=== PATIENT | female | born 1985 | race Caucasian/White ===

== ENCOUNTER 2017-09-20 19:33 | Emergency (ER) | payer OTHER ==
[2017-09-20 19:38] VITALS: RESP 18; TEMP 98.2
--- NOTE | 2017-09-20 21:35 | ED ---
Overdose HPI - General Chief Complaint: Overdose Stated Complaint: overdose Time Seen by Provider: 09/20/17 19:37 Source: police, EMS Mode of arrival: EMS Limitations: no limitations - History of Present Illness Initial Comments: This patient is a 32-year-old woman brought for evaluation after she had an accidental heroin overdose this evening. The patient reports that she had been a previous user of heroin but has been clean for a long time now. She states that she has been in a situation where she is taking care of the child throughout the night and then after this was done she felt she needed something to help her get to sleep. She took heroin, but believes she had taken too much , as she was base this on amount she used to use but again she has been clean for a long time. An associate of hers called the ambulance and she was given Narcan and she did become alert. The patient denies any pain or other symptoms currently. She deftly denies any suicidal ideation or intent. Complaint: accidental overdose -: minutes(s) Intent: want to go to sleep How Overdose Was Discovered: family/friend present at time Context: Accidental Overdose: other Treatments Prior to Arrival: narcan - Related Data Previous Rx's Medication Instructions Recorded Ibuprofen [Motrin] 800 mg PO Q8HR PRN #20 tab 06/20/15 Allergies Allergy/AdvReac Type Severity Reaction Status Date / Time zolpidem tartrate AdvReac Hallucinati Verified 09/20/17 20:09 [From Bhaskar] ons Review of Systems ROS Statement: Those systems with pertinent positive or pertinent negative responses have been documented in the HPI. ROS Other: All systems not noted in ROS Statement are negative. Constitutional: Denies: fever Respiratory: Denies: cough, dyspnea Cardiovascular: Denies: chest pain, palpitations Gastrointestinal: Denies: abdominal pain, vomiting, diarrhea Genitourinary: Denies: dysuria, hematuria, abnormal menses Musculoskeletal: Denies: back pain Skin: Denies: rash Neurological: Denies: headache, weakness, numbness Psychiatric: Denies: depression, suicidal thoughts Past Medical History Past Medical History: No Reported History Additional Past Medical History / Comment(s): DEPRESSION, ANXIETY, BIPOLAR, Heroin use History of Any Multi-Drug Resistant Organisms: MRSA Date of last positivie culture/infection: 06/06/2014 MDRO Source:: Right Axilla Past Surgical History: No Surgical Hx Reported Past Psychological History: Anxiety, Bipolar, Depression Smoking Status: Current every day smoker Past Alcohol Use History: Occasional Past Drug Use History: Heroin, Marijuana General Exam Limitations: no limitations General appearance: alert, in no apparent distress Head exam: Present: atraumatic, normocephalic Eye exam: Present: normal appearance. Absent: scleral icterus, conjunctival injection Neck exam: Present: other (There is an IV line in the left external jugular vein.) Respiratory exam: Present: normal lung sounds bilaterally. Absent: respiratory distress, wheezes, rales, rhonchi, stridor Cardiovascular Exam: Present: regular rate, normal rhythm, normal heart sounds. Absent: systolic murmur, diastolic murmur, rubs, gallop GI/Abdominal exam: Present: soft. Absent: tenderness, guarding, rebound Back exam: Present: normal inspection. Absent: CVA tenderness (R), CVA tenderness (L) Neurological exam: Present: alert, oriented X3, CN II-XII intact. Absent: motor sensory deficit Skin exam: Present: warm, dry, intact, normal color. Absent: rash Course Vital Signs 09/20/17 09/20/17 09/20/17 19:34 20:33 21:55 Temperature 98.2 F Pulse Rate 102 H 93 88 Respiratory 18 18 18 Rate Blood Pressure 127/73 122/71 105/62 O2 Sat by Pulse 97 97 98 Oximetry 09/20/17 23:04 Temperature Pulse Rate 91 Respiratory 18 Rate Blood Pressure 111/74 O2 Sat by Pulse 98 Oximetry Medical Decision Making - EKG Data -: EKG Interpreted by [place] EKG shows normal: sinus rhythm, axis (Normal), intervals (Normal), QRS complexes (Normal), ST-T waves (Normal) Rate: tachycardia (Rate approximately 102 BPM) Interpretation: normal EKG Disposition Clinical Impression: Poisoning by opiate or related narcotic Disposition: HOME SELF-CARE Condition: Good Instructions: Opioid Overdose (ED) Referrals: None,Stated [Primary Care Provider] - 1-2 days
[2017-09-20 23:04] VITALS: BP 111/74; PULSE 91
== END 2017-09-21 | disposition home or self-care (01) ==
LOC: EC 19:33
DX: T40.1X1A Poisoning by heroin, accidental (unintentional), initial encounter (principal); F17.200 Nicotine dependence, unspecified, uncomplicated; Z86.14 Personal history of Methicillin resistant Staphylococcus aureus infection; Z88.8 Allergy status to other drugs, medicaments and biological substances
CPT/HCPCS: 93005; 99284

== ENCOUNTER 2018-03-06 06:57 | Emergency (ER) | payer OTHER | END 2018-03-06 09:50 | disposition home or self-care (01) | LOC: EC 06:57 | DX: K04.7 Periapical abscess without sinus (principal); S02.5XXA Fracture of tooth (traumatic), initial encounter for closed fracture; K02.9 Dental caries, unspecified; F17.200 Nicotine dependence, unspecified, uncomplicated; Z88.8 Allergy status to other drugs, medicaments and biological substances; X58.XXXA Exposure to other specified factors, initial encounter | CPT/HCPCS: 99282 ==

== ENCOUNTER 2018-03-12 20:29 | Emergency (ER) | payer OTHER ==
[2018-03-12 20:58] LABS: Appearance,Urine Turbid (Clear); Bilirubin,Urine Negative (Negative); Blood,Urine Moderate (Negative); Color,Urine Yellow; Glucose,Urine (UA) Negative (Negative); Ketones,Urine Negative (Negative); Leukocyte Esterase,Urine Large (Negative); Mucus,Urine Occasional /hpf; Nitrite,Urine Positive (Negative); Protein,Urine 3+ (Negative); RBC,Urine >182 /hpf (0-5); Specific Gravity,Urine 1.023 (1.001-1.035); Squamous Epithelial Cell,Urine 3 /hpf (0-4); Urobilinogen,Urine <2.0 mg/dL (<2.0); WBC,Urine >182 /hpf (0-5)
[2018-03-12] MEDS ORDERED: SULFAMETHOX-TMP 800-160MG 1 EACH TAB PO STA (21:12)
--- NOTE | 2018-03-12 21:14 | ED ---
Abdominal Pain HPI - General Chief Complaint: Abdominal Pain Stated Complaint: painful urination Time Seen by Provider: 03/12/18 21:08 Source: patient Mode of arrival: ambulatory Limitations: no limitations - History of Present Illness Initial Comments: This patient is a 32-year-old woman here to be evaluated for suprapubic pain, dysuria, and frequency. The patient states that this is similar to previous urinary tract infection that she had. She states the symptoms started coming on approximately noon today. Patient describes pain as mild to moderate, it is worse with urination. She has not noted relieving factors. No associated symptoms. In addition, patient states that she has concerns about possible STI. She states that she had been in group home for 2 months before being released a week ago and that her boyfriend had been having sexual relations with other people. MD Complaint: abdominal pain Onset/Timin -: hour(s) Radiation: suprapubic Migration to: no migration Severity: moderate Quality: burning Consistency: constant Improves With: nothing Worsens With: other (Urination) Associated Symptoms: dysuria - Related Data Previous Rx's Medication Instructions Recorded Ibuprofen [Motrin] 800 mg PO Q8HR PRN #20 tab 06/20/15 Sulfamethox-Tmp 800-160Mg [Bactrim 1 each PO Q12HR #6 tab 03/12/18 Ds] Allergies Allergy/AdvReac Type Severity Reaction Status Date / Time zolpidem tartrate AdvReac Hallucinati Verified 03/12/18 21:23 [From Bhaskar] ons Review of Systems ROS Statement: Those systems with pertinent positive or pertinent negative responses have been documented in the HPI. ROS Other: All systems not noted in ROS Statement are negative. Constitutional: Denies: fever, chills, weakness Respiratory: Denies: cough, dyspnea Cardiovascular: Denies: chest pain Gastrointestinal: Reports: as per HPI, abdominal pain. Denies: nausea, vomiting , diarrhea, constipation Genitourinary: Reports: dysuria, frequency. Denies: discharge, abnormal menses , dyspareunia Musculoskeletal: Denies: back pain Skin: Denies: rash, lesions Past Medical History Past Medical History: No Reported History Additional Past Medical History / Comment(s): DEPRESSION, ANXIETY, BIPOLAR, Heroin use History of Any Multi-Drug Resistant Organisms: MRSA Date of last positivie culture/infection: 06/06/2014 MDRO Source:: Right Axilla Past Surgical History: No Surgical Hx Reported Past Psychological History: Anxiety, Bipolar, Depression Smoking Status: Current every day smoker Past Alcohol Use History: None Reported Past Drug Use History: Heroin, Marijuana General Exam Limitations: no limitations General appearance: alert, in no apparent distress Head exam: Present: atraumatic, normocephalic Respiratory exam: Present: normal lung sounds bilaterally. Absent: respiratory distress, wheezes, rales, rhonchi, stridor Cardiovascular Exam: Present: regular rate, normal rhythm, normal heart sounds. Absent: systolic murmur, diastolic murmur, rubs, gallop GI/Abdominal exam: Present: soft. Absent: distended, tenderness, guarding, rebound, rigid, mass Back exam: Present: normal inspection. Absent: CVA tenderness (R), CVA tenderness (L) Skin exam: Present: warm, dry, intact, normal color. Absent: rash Course Vital Signs 03/12/18 20:39 Temperature 98.6 F Pulse Rate 117 H Respiratory 24 Rate Blood Pressure 131/75 O2 Sat by Pulse 98 Oximetry Medical Decision Making - Medical Decision Making Had discussion with the patient including risks, benefits, indications of empiric treatment for STI, and this point the patient declines - Lab Data Lab Results 03/12/18 Range/Units 20:45 Urine Color Yellow Urine Appearance Turbid H (Clear) Urine pH 6.0 (5.0-8.0) Ur Specific [place] 1.023 (1.001-1.035) Urine Protein 3+ H (Negative) Urine Glucose (UA) Negative (Negative) Urine Ketones Negative (Negative) Urine Blood Moderate H (Negative) Urine Nitrite Positive H (Negative) Urine Bilirubin Negative (Negative) Urine Urobilinogen <2.0 (<2.0) mg/dL Ur Leukocyte Esterase Large H (Negative) Urine RBC >182 H (0-5) /hpf Urine WBC >182 H (0-5) /hpf Urine WBC Clumps Few H (None) /hpf Ur Squamous Epith Cells 3 (0-4) /hpf Urine Mucus Occasional H (None) /hpf Disposition Clinical Impression: Urinary tract infection Disposition: HOME SELF-CARE Condition: Good Instructions: Urinary Tract Infection in Women (ED) Prescriptions: Sulfamethox-Tmp 800-160Mg [Bactrim Ds] 1 each PO Q12HR #6 tab Is patient prescribed a controlled substance at d/c from ED?: No Referrals: None,Stated [Primary Care Provider] - 1-2 days
[2018-03-12 22:53] VITALS: BP 124/78; PULSE 89; RESP 18; TEMP 98.2
[2018-03-15 13:34] LABS: C. trachomatis,PCR Negative (Neg,Equiv); Chlamydia trachomatis Source Cervix; N. gonorrhoeae,PCR Negative (Neg,Equiv); Neisseria Source Cervix
== END 2018-03-12 22:53 | disposition home or self-care (01) ==
LOC: EC 20:29
DX: N39.0 Urinary tract infection, site not specified (principal); F17.200 Nicotine dependence, unspecified, uncomplicated; Z88.8 Allergy status to other drugs, medicaments and biological substances; Z86.14 Personal history of Methicillin resistant Staphylococcus aureus infection
CPT/HCPCS: 81001; 87491; 87591; 99283

== ENCOUNTER 2018-09-05 03:52 | Emergency (ER) | payer OTHER ==
[2018-09-05 04:22] VITALS: RESP 16; TEMP 98
[2018-09-05] MEDS ORDERED: SULFAMETHOX-TMP 800-160MG 1 EACH TAB PO STA (05:23)
[2018-09-05] MEDS ORDERED: IBUPROFEN 600 MG TAB PO STA (05:23)
--- NOTE | 2018-09-05 05:26 | ED ---
Skin/Abscess/FB HPI - General Chief complaint: Skin/Abscess/Foreign Body Stated complaint: Facial Abscess Time Seen by Provider: 09/05/18 04:52 Source: patient Mode of arrival: ambulatory Limitations: no limitations - History of Present Illness MD complaint: abscess/boil Onset/Timin -: days(s) Tetanus Up to Date: yes Location: face Consistency: constant Improves with: none Worsens with: none Associated symptoms: denies other symptoms - Related Data Previous Rx's Medication Instructions Recorded Ibuprofen [Motrin] 800 mg PO Q8HR PRN #20 tab 06/20/15 Sulfamethox-Tmp 800-160Mg [Bactrim 1 each PO Q12HR #6 tab 03/12/18 Ds] Sulfamethox-Tmp 800-160Mg [Bactrim 2 each PO Q12HR #28 tab 09/05/18 Ds] Allergies Allergy/AdvReac Type Severity Reaction Status Date / Time zolpidem tartrate AdvReac Hallucinati Verified 04/22/18 18:15 [From Bhaskar] ons Review of Systems ROS Statement: Those systems with pertinent positive or pertinent negative responses have been documented in the HPI. ROS Other: All systems not noted in ROS Statement are negative. Constitutional: Denies: fever, chills Skin: Reports: as per HPI Neurological: Denies: headache Past Medical History Past Medical History: No Reported History Additional Past Medical History / Comment(s): DEPRESSION, ANXIETY, BIPOLAR, Heroin use History of Any Multi-Drug Resistant Organisms: MRSA Date of last positivie culture/infection: 06/06/2014 MDRO Source:: Right Axilla Past Surgical History: No Surgical Hx Reported Past Psychological History: Anxiety, Bipolar, Depression Smoking Status: Current every day smoker Past Alcohol Use History: None Reported Past Drug Use History: Heroin, Marijuana General Exam Limitations: no limitations General appearance: alert, in no apparent distress ENT exam: Present: normal oropharynx Skin exam: Present: warm, dry, normal color, other (Patient has a pustule with some excoriation to the right forehead. No evidence of any bony involvement.) Course Vital Signs 09/05/18 04:18 Temperature 98.0 F Pulse Rate 78 Respiratory 16 Rate Blood Pressure 114/63 O2 Sat by Pulse 99 Oximetry Disposition Clinical Impression: Skin pustule Disposition: HOME SELF-CARE Condition: Good Instructions: Abscess (ED) Prescriptions: Sulfamethox-Tmp 800-160Mg [Bactrim Ds] 2 each PO Q12HR #28 tab Is patient prescribed a controlled substance at d/c from ED?: No Referrals: None,Stated [Primary Care Provider] - 1-2 days Lizabeth Herrera MD [STAFF PHYSICIAN] - 1-2 days
[2018-09-05 05:36] VITALS: BP 122/76; PULSE 99
== END 2018-09-05 05:36 | disposition home or self-care (01) ==
LOC: EC 03:52
DX: L08.9 Local infection of the skin and subcutaneous tissue, unspecified (principal); F17.200 Nicotine dependence, unspecified, uncomplicated; Z86.14 Personal history of Methicillin resistant Staphylococcus aureus infection; Z88.8 Allergy status to other drugs, medicaments and biological substances
CPT/HCPCS: 87070; 87205; 99283

== ENCOUNTER 2018-12-15 07:51 | Emergency (ER) | payer OTHER ==
[2018-12-15 08:16] VITALS: BP 127/75; PULSE 99; RESP 18; TEMP 98.2
--- NOTE | 2018-12-15 08:22 | ED ---
Skin/Abscess/FB HPI - General Chief complaint: Skin/Abscess/Foreign Body Stated complaint: Bug Bite Time Seen by Provider: 12/15/18 08:16 Source: patient, RN notes reviewed Mode of arrival: ambulatory Limitations: no limitations - History of Present Illness Initial comments: 33-year-old female presents emergency Department chief complaint of abscess to left forearm. Patient states started 3 days ago. Patient states that worsened that she pressed over the area and try to pop it. Patient believes that she was bit by a spider. Patient denies any fevers or chills. She states is painful. Patient does have history IV drug use. Patient offers no other complaints. - Related Data Previous Rx's Medication Instructions Recorded Ibuprofen [Motrin] 800 mg PO Q8HR PRN #20 tab 06/20/15 Sulfamethox-Tmp 800-160Mg [Bactrim 1 each PO Q12HR #6 tab 03/12/18 Ds] Sulfamethox-Tmp 800-160Mg [Bactrim 2 each PO Q12HR #28 tab 09/05/18 Ds] Cephalexin [Keflex] 500 mg PO Q6HR #40 cap 12/15/18 Sulfamethox-Tmp 800-160Mg [Bactrim 1 each PO Q12HR #20 tab 12/15/18 Ds] Allergies Allergy/AdvReac Type Severity Reaction Status Date / Time zolpidem tartrate AdvReac Hallucinati Verified 12/15/18 08:16 [From Bhaskar] ons Review of Systems ROS Statement: Those systems with pertinent positive or pertinent negative responses have been documented in the HPI. ROS Other: All systems not noted in ROS Statement are negative. Past Medical History Past Medical History: No Reported History Additional Past Medical History / Comment(s): DEPRESSION, ANXIETY, BIPOLAR, Heroin use History of Any Multi-Drug Resistant Organisms: MRSA Date of last positivie culture/infection: 09/05/18 MDRO Source:: FACE Past Surgical History: No Surgical Hx Reported Past Psychological History: Anxiety, Bipolar, Depression Smoking Status: Current every day smoker Past Alcohol Use History: None Reported Past Drug Use History: Heroin, Marijuana General Exam Limitations: no limitations General appearance: alert, in no apparent distress Head exam: Present: atraumatic, normocephalic, normal inspection Respiratory exam: Present: normal lung sounds bilaterally. Absent: respiratory distress, wheezes, rales, rhonchi, stridor Cardiovascular Exam: Present: regular rate, normal rhythm, normal heart sounds. Absent: systolic murmur, diastolic murmur, rubs, gallop, clicks Extremities exam: Present: other (Left forearm there is a noted partial surrounding erythema, no fluctuance, in mild tenderness with palpation.) Course Vital Signs 12/15/18 08:14 Temperature 98.2 F Pulse Rate 99 Respiratory 18 Rate Blood Pressure 127/75 O2 Sat by Pulse 95 Oximetry Medical Decision Making - Medical Decision Making 33-year-old female presented for abscess left forearm. This is nonfluctuant abscess no area 84 opening or drainage. Patient was placed on Bactrim and Keflex. Patient will continue warm compresses and return for any worsening symptoms. Disposition Clinical Impression: Abscess of left forearm Disposition: HOME SELF-CARE Condition: Stable Instructions (If sedation given, give patient instructions): Abscess (ED) Additional Instructions: Please return to the Emergency Department if symptoms worsen or any other concerns. Prescriptions: Sulfamethox-Tmp 800-160Mg [Bactrim Ds] 1 each PO Q12HR #20 tab Cephalexin [Keflex] 500 mg PO Q6HR #40 cap Is patient prescribed a controlled substance at d/c from ED?: No Referrals: None,Stated [Primary Care Provider] - 1-2 days Time of Disposition: 08:22
== END 2018-12-15 08:39 | disposition home or self-care (01) ==
LOC: EC 07:51
DX: L02.414 Cutaneous abscess of left upper limb (principal); F17.200 Nicotine dependence, unspecified, uncomplicated; Z88.8 Allergy status to other drugs, medicaments and biological substances; Z86.14 Personal history of Methicillin resistant Staphylococcus aureus infection
CPT/HCPCS: 99281

== ENCOUNTER 2018-12-17 14:01 | Emergency (ER) | payer OTHER ==
[2018-12-17 14:10] VITALS: BP 130/65; PULSE 108; RESP 18; TEMP 98.2
[2018-12-17] MEDS ORDERED: ETHYL CHLORIDE 103.5 ML SPRAY TOPICAL STA (14:13)
--- NOTE | 2018-12-17 14:17 | ED ---
Skin/Abscess/FB HPI - General Chief complaint: Skin/Abscess/Foreign Body Stated complaint: Abcess on arm Time Seen by Provider: 12/17/18 14:06 Source: patient, RN notes reviewed Mode of arrival: ambulatory Limitations: no limitations - History of Present Illness Initial comments: 33-year-old female presents emergency department for abscess to her left fo rearm. Patient states started a few days ago was placed on antibiotics. Patient states that she hasn't taken it but states now increased in size. Patient states is painful. Patient doesn't abuse or chills. Patient has a prior heroin abuser. Patient has full range of motion of her left arm. - Related Data Previous Rx's Medication Instructions Recorded Ibuprofen [Motrin] 800 mg PO Q8HR PRN #20 tab 06/20/15 Cephalexin [Keflex] 500 mg PO Q6HR #40 cap 12/15/18 Sulfamethox-Tmp 800-160Mg [Bactrim 1 each PO Q12HR #20 tab 12/15/18 Ds] Allergies Allergy/AdvReac Type Severity Reaction Status Date / Time Real And Derivatives AdvReac Verified 12/17/18 14:18 zolpidem tartrate AdvReac Hallucinati Verified 12/17/18 14:10 [From Ambien] ons Review of Systems ROS Statement: Those systems with pertinent positive or pertinent negative responses have been documented in the HPI. ROS Other: All systems not noted in ROS Statement are negative. Past Medical History Past Medical History: No Reported History Additional Past Medical History / Comment(s): DEPRESSION, ANXIETY, BIPOLAR, Heroin use History of Any Multi-Drug Resistant Organisms: MRSA Date of last positivie culture/infection: 09/05/18 MDRO Source:: FACE Past Surgical History: No Surgical Hx Reported Past Psychological History: Anxiety, Bipolar, Depression Smoking Status: Current every day smoker Past Alcohol Use History: None Reported Past Drug Use History: Heroin, Marijuana General Exam Limitations: no limitations General appearance: alert, in no apparent distress Head exam: Present: atraumatic, normocephalic, normal inspection Respiratory exam: Present: normal lung sounds bilaterally. Absent: respiratory distress, wheezes, rales, rhonchi, stridor Cardiovascular Exam: Present: regular rate, normal rhythm, normal heart sounds. Absent: systolic murmur, diastolic murmur, rubs, gallop, clicks Extremities exam: Present: other (Left forearm there is a 1 cm abscess that is fluctuant, surrounding erythema noted) Course Vital Signs 12/17/18 14:05 Temperature 98.2 F Pulse Rate 108 H Respiratory 18 Rate Blood Pressure 130/65 O2 Sat by Pulse 99 Oximetry Procedures - Incision & Drainage Consent Obtained: verbal consent Site: upper extremity (Left forearm) Size (cm): 2 I&D Cleaning Method: Chloroprep Sterile Field Used?: No Needle Aspiration Performed?: Yes I&D Drainage Obtained: Pus, Blood Culture Obtained?: Yes Complications: pain Patient Tolerated Procedure: no complications Medical Decision Making - Medical Decision Making 33-year-old female presented for recheck of left forearm abscess. it did increase in size., I&D was performed with a large purulent Drainage was removed. Patient will continue oral antibiotics and warm compresses. Disposition Clinical Impression: Abscess of left forearm Disposition: HOME SELF-CARE Condition: Stable Instructions (If sedation given, give patient instructions): Abscess Incision and Drainage (ED) Additional Instructions: Please return to the Emergency Department if symptoms worsen or any other concerns. Is patient prescribed a controlled substance at d/c from ED?: No Referrals: None,Stated [Primary Care Provider] - 1-2 days Time of Disposition: 14:31
== END 2018-12-17 14:39 | disposition home or self-care (01) ==
LOC: EC 14:01
DX: L02.414 Cutaneous abscess of left upper limb (principal); F17.200 Nicotine dependence, unspecified, uncomplicated; Z91.018 Allergy to other foods; Z88.8 Allergy status to other drugs, medicaments and biological substances
CPT/HCPCS: 10060; 87070; 87205; 99283

== ENCOUNTER 2019-04-14 15:46 | Emergency (ER) | payer OTHER ==
[2019-04-14 15:53] VITALS: BP 121/74; PULSE 94; RESP 18; TEMP 98
--- NOTE | 2019-04-14 16:13 | ED ---
Skin/Abscess/FB HPI - General Chief complaint: Skin/Abscess/Foreign Body Stated complaint: RASH Time Seen by Provider: 04/14/19 15:53 Source: patient, RN notes reviewed Mode of arrival: ambulatory Limitations: no limitations - History of Present Illness Initial comments: 33-year-old female presents emergency Department chief complaint of skin rash. Patient states she has multiple abscesses all over her body after she got out of [facility]. She states that they do open up and drain she does have a history of MRSA. Patient states that they are getting worse. Patient also complains that she has a dental infection. Patient denies any fevers chills no trismus. Denies any new soaps lotions detergents. - Related Data Home Medications Medication Instructions Recorded Confirmed Ibuprofen [Motrin] 600 mg PO TID PRN 04/14/19 04/14/19 Previous Rx's Medication Instructions Recorded Cephalexin [Keflex] 500 mg PO Q6HR #40 cap 04/14/19 Ibuprofen [Motrin] 600 mg PO Q8HR PRN #30 tab 04/14/19 Sulfamethox-Tmp 800-160Mg [Bactrim 1 each PO Q12HR #28 tab 04/14/19 Ds] Allergies Allergy/AdvReac Type Severity Reaction Status Date / Time Bath And Derivatives AdvReac Unknown Verified 04/14/19 15:53 zolpidem tartrate AdvReac Hallucinati Verified 04/14/19 15:53 [From Bhaskar] ons Review of Systems ROS Statement: Those systems with pertinent positive or pertinent negative responses have been documented in the HPI. ROS Other: All systems not noted in ROS Statement are negative. Past Medical History Past Medical History: No Reported History Additional Past Medical History / Comment(s): DEPRESSION, ANXIETY, BIPOLAR, Heroin use History of Any Multi-Drug Resistant Organisms: MRSA Date of last positivie culture/infection: 12/17/18 MDRO Source:: arm Past Surgical History: No Surgical Hx Reported Past Psychological History: Anxiety, Bipolar, Depression Smoking Status: Current every day smoker Past Alcohol Use History: None Reported Past Drug Use History: Heroin, Marijuana General Exam Limitations: no limitations General appearance: alert, in no apparent distress Head exam: Present: atraumatic, normocephalic, normal inspection Eye exam: Present: normal appearance, PERRL, EOMI. Absent: scleral icterus, conjunctival injection, periorbital swelling ENT exam: Present: mucous membranes moist, TM's normal bilaterally, normal external ear exam. Absent: normal exam, normal oropharynx (Poor dentition no abscess) Neck exam: Present: normal inspection, full ROM. Absent: tenderness, meningismus, lymphadenopathy Respiratory exam: Present: normal lung sounds bilaterally. Absent: respiratory distress, wheezes, rales, rhonchi, stridor Cardiovascular Exam: Present: regular rate, normal rhythm, normal heart sounds. Absent: systolic murmur, diastolic murmur, rubs, gallop, clicks Neurological exam: Present: alert, oriented X3, CN II-XII intact Skin exam: Present: warm, dry, intact, normal color, rash (Diffuse sores that are open and erythematous) Course Vital Signs 04/14/19 15:51 Temperature 98.0 F Pulse Rate 94 Respiratory 18 Rate Blood Pressure 121/74 O2 Sat by Pulse 98 Oximetry Medical Decision Making - Medical Decision Making 33-year-old female presented for sores and dental pain. Patient we treated for staph infection along with dental infection to be placed on Bactrim and Keflex she was given ibuprofen 600 and return parameters were discussed. Disposition Clinical Impression: Abscess of multiple sites, Staph infection, Pain, dental Disposition: HOME SELF-CARE Condition: Stable Instructions (If sedation given, give patient instructions): Abscess (ED) Additional Instructions: Please return to the Emergency Department if symptoms worsen or any other concerns. Prescriptions: Sulfamethox-Tmp 800-160Mg [Bactrim Ds] 1 each PO Q12HR #28 tab Cephalexin [Keflex] 500 mg PO Q6HR #40 cap Ibuprofen [Motrin] 600 mg PO Q8HR PRN #30 tab PRN Reason: Pain Is patient prescribed a controlled substance at d/c from ED?: No Referrals: None,Stated [Primary Care Provider] - 1-2 days Time of Disposition: 16:13
== END 2019-04-14 16:21 | disposition home or self-care (01) ==
LOC: EC 15:46
DX: L02.818 Cutaneous abscess of other sites (principal); K08.89 Other specified disorders of teeth and supporting structures; B95.8 Unspecified staphylococcus as the cause of diseases classified elsewhere; F17.200 Nicotine dependence, unspecified, uncomplicated; Z88.8 Allergy status to other drugs, medicaments and biological substances; Z91.048 Other nonmedicinal substance allergy status; Z86.14 Personal history of Methicillin resistant Staphylococcus aureus infection
CPT/HCPCS: 99282

== ENCOUNTER 2020-05-08 05:39 | Emergency (ER) | payer OTHER ==
[2020-05-08 05:44] VITALS: BP 99/73; PULSE 107; RESP 36; TEMP 98.3
[2020-05-08] MEDS ORDERED: CIPROFLOXACIN-DEXAMETH 0.3-0.1% DROPS 7.5 ML BTL LEFT EAR STA (06:03)
[2020-05-08] MEDS ORDERED: LORazepam 1 MG TAB PO STA (06:03)
[2020-05-08] MEDS ORDERED: AMOXIC-POT CLAV 875MG STARTER PACK 2 TAB BTL PO STA (06:03)
[2020-05-08] MEDS ORDERED: AMOXIC-POT CLAV 875-125MG 1 EACH TAB PO STA (06:03)
[2020-05-08] MEDS ORDERED: IBUPROFEN 600 MG TAB PO STA (06:04)
[2020-05-08] MEDS ORDERED: IBUPROFEN 600 MG STARTER PACK 4 TAB BTL PO STA (06:04)
--- NOTE | 2020-05-08 06:06 | ED ---
ENT HPI - General Chief complaint: ENT Stated complaint: ear pain Time Seen by Provider: 05/08/20 05:46 Source: patient, RN notes reviewed, old records reviewed Mode of arrival: ambulatory Limitations: no limitations - History of Present Illness Initial comments: This is a 34-year-old female to the ER for evaluation patient is here for evaluation regards to severe left ear pain. Patient is very anxious here on exam. Otherwise no medical history takes no medications. Patient has severe pain she woke up this pain today. Also complaining of low left dog bite or scratch the left side of her neck no active bleeding is happened yesterday. No other complaints MD complaint: ear pain -: days(s) Location: L ear Severity: severe Severity scale (1-10): 8 Quality: aching Consistency: constant Improves with: none Worsens with: none Context- Dental: trauma Context- Ear: recent illness Associated Symptoms: cough, sore throat - Related Data Home Medications Medication Instructions Recorded Confirmed Ibuprofen [Motrin] 600 mg PO TID PRN 04/14/19 04/14/19 Previous Rx's Medication Instructions Recorded Cephalexin [Keflex] 500 mg PO Q6HR #40 cap 04/14/19 Ibuprofen [Motrin] 600 mg PO Q8HR PRN #30 tab 04/14/19 Sulfamethox-Tmp 800-160Mg [Bactrim 1 each PO Q12HR #28 tab 04/14/19 Ds] Amoxic-Pot Clav 875-125Mg 1 tab PO Q12HR #20 tablet 05/08/20 [Augmentin 875-125] Allergies Allergy/AdvReac Type Severity Reaction Status Date / Time Butler And Derivatives AdvReac Unknown Verified 05/08/20 05:44 zolpidem tartrate AdvReac Hallucinati Verified 05/08/20 05:44 [From Bhaskar] ons Review of Systems ROS Statement: Those systems with pertinent positive or pertinent negative responses have been documented in the HPI. ROS Other: All systems not noted in ROS Statement are negative. Past Medical History Past Medical History: No Reported History Additional Past Medical History / Comment(s): DEPRESSION, ANXIETY, BIPOLAR, Heroin use History of Any Multi-Drug Resistant Organisms: MRSA Date of last positivie culture/infection: 12/17/18 MDRO Source:: arm Past Surgical History: No Surgical Hx Reported Past Psychological History: Anxiety, Bipolar, Depression Smoking Status: Current every day smoker Past Alcohol Use History: None Reported Past Drug Use History: Heroin, Marijuana General Exam Limitations: no limitations General appearance: alert, in no apparent distress, anxious Head exam: Present: atraumatic, normocephalic, normal inspection Eye exam: Present: normal appearance, PERRL, EOMI. Absent: scleral icterus, conjunctival injection, periorbital swelling ENT exam: Present: normal exam, mucous membranes moist. Absent: TM's normal bilaterally (Left TM has significant opacity no light reflex) Neck exam: Present: normal inspection. Absent: tenderness, meningismus, lymphadenopathy Respiratory exam: Present: normal lung sounds bilaterally. Absent: respiratory distress, wheezes, rales, rhonchi, stridor Cardiovascular Exam: Present: normal rhythm, tachycardia, normal heart sounds. Absent: systolic murmur, diastolic murmur, rubs, gallop, clicks GI/Abdominal exam: Present: soft, normal bowel sounds. Absent: distended, tenderness, guarding, rebound, rigid Extremities exam: Present: normal inspection, full ROM, normal capillary refill. Absent: tenderness, pedal edema, joint swelling, calf tenderness Back exam: Present: normal inspection Neurological exam: Present: alert, oriented X3, CN II-XII intact Psychiatric exam: Present: normal affect, normal mood Skin exam: Present: warm, dry, intact, normal color. Absent: rash Course Vital Signs 05/08/20 05:40 Temperature 98.3 F Pulse Rate 107 H Respiratory 36 H Rate Blood Pressure 99/73 O2 Sat by Pulse 97 Oximetry - Reevaluation(s) Reevaluation #1: medical record is reviewed Patient feeling better here in the ER Patient informed of results, questions are answered Patient feels improved and okay for discharge home Medical Decision Making - Medical Decision Making 34 female to the ER ear pain patient has left otitis media patient will be given antibiotics and discharged home Disposition Clinical Impression: Left otitis media, Dog bite of neck Disposition: HOME SELF-CARE Condition: Good Instructions (If sedation given, give patient instructions): Animal Bite (ED), Ear Infection (ED), Earache (ED) Prescriptions: Amoxic-Pot Clav 875-125Mg [Augmentin 875-125] 1 tab PO Q12HR #20 tablet Is patient prescribed a controlled substance at d/c from ED?: No Referrals: Jono Lopez MD [Primary Care Provider] - 1-2 days
== END 2020-05-08 06:18 | disposition home or self-care (01) ==
LOC: EC 05:39
DX: H66.92 Otitis media, unspecified, left ear (principal); S11.95XA Open bite of unspecified part of neck, initial encounter; F17.200 Nicotine dependence, unspecified, uncomplicated; Z88.8 Allergy status to other drugs, medicaments and biological substances; W54.0XXA Bitten by dog, initial encounter; Z86.14 Personal history of Methicillin resistant Staphylococcus aureus infection
CPT/HCPCS: 99283

== ENCOUNTER 2021-03-03 12:34 | Emergency (ER) | payer OTHER ==
[2021-03-03 12:41] VITALS: BP 111/64; PULSE 85; RESP 20; TEMP 97.8
--- NOTE | 2021-03-03 13:13 | ED ---
General Adult HPI - General Chief complaint: Extremity Injury, Upper Stated complaint: poss infection in hand Time Seen by Provider: 03/03/21 13:01 Source: patient Mode of arrival: ambulatory Limitations: no limitations - History of Present Illness Initial comments: This 35-year-old female presents complaining of some swelling to her left wrist and hand region. The wrist started approximately 3 days ago and the hand started yesterday. She complains of only minimal pain. There is no fluctuance. She does inject IV hair when into this area but has not done so in the last 2 days. She does have a history of multiple previous abscesses from injecting heroin. She denies any fevers or chills. No other complaints or modifying factors. She denies any possibility of . - Related Data Home Medications Medication Instructions Recorded Confirmed Ibuprofen [Motrin] 600 mg PO TID PRN 04/14/19 04/14/19 Previous Rx's Medication Instructions Recorded Cephalexin [Keflex] 500 mg PO Q6HR #40 cap 04/14/19 Ibuprofen [Motrin] 600 mg PO Q8HR PRN #30 tab 04/14/19 Sulfamethox-Tmp 800-160Mg [Bactrim 1 each PO Q12HR #28 tab 04/14/19 Ds] Amoxic-Pot Clav 875-125Mg 1 tab PO Q12HR #20 tablet 05/08/20 [Augmentin 875-125] Sulfamethox-Tmp 800-160Mg [Bactrim 1 tab PO Q12HR #20 tab 03/03/21 DS 800-160 mg] Allergies Allergy/AdvReac Type Severity Reaction Status Date / Time Koppel And Derivatives AdvReac Unknown Verified 03/03/21 12:40 zolpidem tartrate AdvReac Hallucinati Verified 03/03/21 12:40 [From Bhaskar] ons Review of Systems ROS Statement: Those systems with pertinent positive or pertinent negative responses have been documented in the HPI. ROS Other: All systems not noted in ROS Statement are negative. Past Medical History Past Medical History: No Reported History Additional Past Medical History / Comment(s): DEPRESSION, ANXIETY, BIPOLAR, Heroin use History of Any Multi-Drug Resistant Organisms: MRSA Date of last positivie culture/infection: 12/17/18 MDRO Source:: arm Past Surgical History: No Surgical Hx Reported Past Psychological History: Anxiety, Bipolar, Depression Smoking Status: Current every day smoker Past Alcohol Use History: None Reported Past Drug Use History: Heroin, Marijuana General Exam - General Exam Comments Initial Comments: Alert and oriented, no apparent distress. Patient appears to be well-nourished and well-hydrated Circulatory: Good radial pulses bilaterally, good capillary refill Muscle skeletal: There is mild swelling and tenderness noted into the right radial wrist which extends into the dorsal hand. There is excellent range of motion without any difficulty. There is excellent strength noted to hand and wrist. Excellent neurologic: No gross sensory or motor deficits Integumentary: There is tract wadsworth noted in the right radial wrist and forearm. Limitations: no limitations Course Vital Signs 03/03/21 12:38 Temperature 97.8 F Pulse Rate 85 Respiratory 20 Rate Blood Pressure 111/64 O2 Sat by Pulse 100 Oximetry Medical Decision Making - Medical Decision Making The patient was seen and examined. Records are reviewed. No abscess is identified. She likely does have an underlying cellulitis from injecting heroin. She is counseled regarding drug abuse in detail. She would benefit from antibiotic course. She is agreeable to this plan and leaves in no distress. Disposition Clinical Impression: Cellulitis, Intravenous drug abuse Disposition: HOME SELF-CARE Condition: Good Instructions (If sedation given, give patient instructions): Cellulitis (ED), Narcotic Use Disorder (ED) Prescriptions: Sulfamethox-Tmp 800-160Mg [Bactrim DS 800-160 mg] 1 tab PO Q12HR #20 tab Is patient prescribed a controlled substance at d/c from ED?: No Referrals: None,Stated [Primary Care Provider] - 1-2 days Time of Disposition: 13:12
== END 2021-03-03 13:28 | disposition home or self-care (01) ==
LOC: EC 12:34
DX: L03.114 Cellulitis of left upper limb (principal); F19.10 Other psychoactive substance abuse, uncomplicated; F31.9 Bipolar disorder, unspecified; F41.9 Anxiety disorder, unspecified; F17.200 Nicotine dependence, unspecified, uncomplicated; F12.90 Cannabis use, unspecified, uncomplicated
CPT/HCPCS: 99283

== ENCOUNTER 2022-02-13 09:13 | Emergency (ER) | payer OTHER ==
--- NOTE | 2022-02-13 09:55 | ED ---
ENT HPI - General Chief complaint: Dental/Oral Stated complaint: dental pain Time Seen by Provider: 02/13/22 09:43 Source: patient, RN notes reviewed Mode of arrival: ambulatory Limitations: no limitations - History of Present Illness Initial comments: 36-year-old female presents emergency Department with chief complaint abdominal pain. Patient states she had 6 teeth extracted by dentist 2 weeks ago. She states she started developing ulcerations, increasing pain in her mouth. She states she cannot follow-up with her dentist as her significant other dropped her off and [place] stating that she was living in [place]. Patient has no ride. Patient states she is on ibuprofen no other medications. She does have a history of drug abuse including methamphetamine, heroin. Patient reports no fever. - Related Data Home Medications Medication Instructions Recorded Confirmed Ibuprofen [Motrin] 600 mg PO TID PRN 04/14/19 04/14/19 Previous Rx's Medication Instructions Recorded Cephalexin [Keflex] 500 mg PO Q6HR #40 cap 04/14/19 Ibuprofen [Motrin] 600 mg PO Q8HR PRN #30 tab 04/14/19 Sulfamethox-Tmp 800-160Mg [Bactrim 1 each PO Q12HR #28 tab 04/14/19 Ds] Amoxic-Pot Clav 875-125Mg 1 tab PO Q12HR #20 tablet 05/08/20 [Augmentin 875-125] Sulfamethox-Tmp 800-160Mg [Bactrim 1 tab PO Q12HR #20 tab 03/03/21 DS 800-160 mg] Chlorhexidine Gluconate [Peridex] 15 ml PO BID #473 ml 02/13/22 Clindamycin HCl 300 mg PO Q6HR #40 cap 02/13/22 Allergies Allergy/AdvReac Type Severity Reaction Status Date / Time Mcdowell And Derivatives AdvReac Unknown Verified 03/03/21 12:40 zolpidem tartrate AdvReac Hallucinati Verified 03/03/21 12:40 [From Bhaskar] ons Review of Systems ROS Statement: Those systems with pertinent positive or pertinent negative responses have been documented in the HPI. ROS Other: All systems not noted in ROS Statement are negative. Past Medical History Past Medical History: No Reported History Additional Past Medical History / Comment(s): DEPRESSION, ANXIETY, BIPOLAR, Heroin use History of Any Multi-Drug Resistant Organisms: MRSA Date of last positivie culture/infection: 12/17/18 MDRO Source:: arm Past Surgical History: No Surgical Hx Reported Past Psychological History: Anxiety, Bipolar, Depression Smoking Status: Current every day smoker Past Alcohol Use History: None Reported Past Drug Use History: Heroin, Marijuana General Exam Limitations: no limitations General appearance: alert, in no apparent distress, anxious Head exam: Present: atraumatic, normocephalic, normal inspection Eye exam: Present: normal appearance, PERRL, EOMI. Absent: scleral icterus, conjunctival injection, periorbital swelling ENT exam: Present: mucous membranes moist. Absent: normal exam, normal oropharynx (Multiple recent extractions, no dentition upper, there are multiple ulcerations along the gumline) Neck exam: Present: normal inspection, full ROM. Absent: tenderness, meningismus, lymphadenopathy Respiratory exam: Present: normal lung sounds bilaterally. Absent: respiratory distress, wheezes, rales, rhonchi, stridor Cardiovascular Exam: Present: normal rhythm, tachycardia, normal heart sounds. Absent: systolic murmur, diastolic murmur, rubs, gallop, clicks Neurological exam: Present: alert Skin exam: Present: warm, dry, intact, normal color. Absent: rash Course Vital Signs 02/13/22 09:32 Temperature 97.9 F Pulse Rate 136 H Respiratory 28 H Rate Blood Pressure 111/59 O2 Sat by Pulse 96 Oximetry Medical Decision Making - Medical Decision Making Patient is positive for methamphetamines. Patient has a history of drug abuse. Patient will be given clindamycin, Peridex she is advised to follow-up return parameters were discussed. - Lab Data Lab Results 02/13/22 Range/Units 10:12 Urine Opiates Screen Not Detected (NotDetected) Ur Oxycodone Screen Not Detected (NotDetected) Urine Methadone Screen Not Detected (NotDetected) Ur Propoxyphene Screen Not Detected (NotDetected) Ur Barbiturates Screen Not Detected (NotDetected) U Tricyclic Antidepress Not Detected (NotDetected) Ur Phencyclidine Scrn Not Detected (NotDetected) Ur Amphetamines Screen Detected H (NotDetected) U Methamphetamines Scrn Detected H (NotDetected) U Benzodiazepines Scrn Not Detected (NotDetected) Urine Cocaine Screen Not Detected (NotDetected) U Marijuana (THC) Screen Not Detected (NotDetected) Disposition Clinical Impression: Mouth sores, Methamphetamine abuse, Oral pain Disposition: HOME SELF-CARE Condition: Stable Instructions (If sedation given, give patient instructions): Canker Sores (ED) Additional Instructions: Please return to the Emergency Department if symptoms worsen or any other concerns. Prescriptions: Clindamycin HCl 300 mg PO Q6HR #40 cap Chlorhexidine Gluconate [Peridex] 15 ml PO BID #473 ml Is patient prescribed a controlled substance at d/c from ED?: No Referrals: None,Stated [Primary Care Provider] - 1-2 days Time of Disposition: 10:51
[2022-02-13] MEDS: HYDROcodone/APAP 5-325MG 1 EACH TAB PO STA ×2 (10:01→10:05)
[2022-02-13] MEDS ORDERED: KETOROLAC 15 MG/ML 1 ML VIAL IM STA (10:06)
[2022-02-13 10:43] LABS: Amphetamine Screen,Urine Detected (NotDetected); Barbiturate Screen,Urine Not Detected (NotDetected); Benzodiazepines Screen,Urine Not Detected (NotDetected); Cocaine Screen,Urine Not Detected (NotDetected); Methadone Screen, Urine Not Detected (NotDetected); Opiate Screen,Urine Not Detected (NotDetected); Oxycodone Screen, Urine Not Detected (NotDetected); Phencyclidine Screen,Urine Not Detected (NotDetected); Tricyclic Antidepressant,Urine Not Detected (NotDetected); Urn Cannabinoid Scrn Not Detected (NotDetected)
[2022-02-13 10:59] VITALS: BP 122/69; PULSE 62; RESP 18; TEMP 98
== END 2022-02-13 10:58 | disposition home or self-care (01) ==
LOC: EC 09:13
DX: F15.10 Other stimulant abuse, uncomplicated (principal); K13.70 Unspecified lesions of oral mucosa; F17.200 Nicotine dependence, unspecified, uncomplicated; Z91.018 Allergy to other foods; Z88.8 Allergy status to other drugs, medicaments and biological substances
CPT/HCPCS: 80306; 99284; 96372; J1885

== ENCOUNTER 2022-02-14 17:50 | Inpatient (IN) | payer MEDICAID ==
[2022-02-14 22:24] VITALS: RESP 18; TEMP 97.4
[2022-02-14] MEDS ORDERED: MAG HYDROX/AL HYDROX/SIMETH 30 ML CUP PO PRN (22:24)
[2022-02-14] MEDS ORDERED: ACETAMINOPHEN TAB 325 MG TAB PO PRN (22:24)
[2022-02-14] MEDS ORDERED: HALOPERIDOL LACTATE 5 MG/ML 1 ML VIAL IM PRN (22:24)
[2022-02-14] MEDS ORDERED: MAGNESIUM HYDROXIDE 2,400 MG/10 ML CUP PO PRN (22:24)
[2022-02-14] MEDS ORDERED: LORazepam 2 MG/ML INJ IM PRN (22:29)
[2022-02-14] MEDS ORDERED: haloperidoL 5 MG TAB PO PRN (22:30)
[2022-02-14] MEDS ORDERED: IBUPROFEN 800 MG TAB PO PRN (22:31)
--- NOTE | 2022-02-15 12:56 | P.HP ---
Psychiatric H&P - . H&P Date: 02/15/22 History & Physical: Allergies Allergy/AdvReac Type Severity Reaction Status Date / Time Danielson And Derivatives AdvReac Unknown Verified 02/13/22 10:49 zolpidem tartrate AdvReac Hallucinati Verified 02/13/22 10:49 From Ambien ons Vital Signs Temp 97.4 F L 02/14/22 22:09 Pulse 87 02/14/22 22:09 Resp 18 02/14/22 22:09 BP 144/64 02/14/22 22:09 Pulse Ox FiO2 Intake & Output 02/14/22 02/15/22 02/15/22 18:59 06:59 18:59 Weight 72.7 kg 02/15/22 12:50 IDENTIFYING DATA: Patient is a 36-year-old female currently homeless has 2 kids is and unemployed. HPI: Patient presented to the hospital yesterday as she was a transfer from [facility]. Patient claims that she came into the ER for evaluation as she was experiencing pain from having her teeth pulled. She states that she "broke them" and had them removed about 2 weeks ago. She states that they may be infected. She claims that she threatened suicide when the ER doctor was about to discharge her and stated "if you put me out on the street uncle and kill myself". Patient was transferred to [facility] and admitted to the mental health unit voluntarily. Patient was seen this morning and agreeable to speak to abstract writer. She claims that she has been homeless for the past 4 or 5 days now. She states that her significant other "threw me out" out of the house. She states that she misses her kids. She claims that she has been depressed and crying lately. She admits to anxiety. She claims her sleep and appetite have been poor. She claims that she does not have much support system in this area. She claims that she also has very little money and nowhere to go. Patient denies any suicidal or homicidal ideations intent or plan. At this time patient denies any auditory or visual hallucinations. Patient denies any flight of ideas racing thoughts and increased in goal directed behavior. Patient admits to using cigarettes only. PAST PSYCHIATRIC HISTORY: Patient states that she has a history of depression. She claims that she is to be on psychiatric medications however is not on any. She claims that her last psychiatric hospitalization was in 2013 and [facility]. Patient denies any psychiatric outpatient follow-up. She claims that she attempted to kill herself in 2013 however cannot remember how she did it. PMH: Please refer to medical H&P ALLERGIES: as per EMR CHEMICAL DEPENDENCY HISTORY: as per HPI FAMILY PSYCHIATRIC/SUBSTANCE USE HISTORY: denies SOCIAL HISTORY: Patient was born and raised in [place]. She states that she has some college and completed high school. 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 She states that she has gone to prison several times for drug possession charges. She has 2 kids is currently . She is homeless. MENTAL STATUS EXAM: General Appearance: Patient appears to be disheveled in appearance, stated age is alert, directable, and attempts to cooperate. Irritable at times. Patient appears to have poor hygiene and grooming. Behavior: Patient is seated without any agitated behavior. Irritable Speech: Patient's speech is fluent and nonpressured. Mood/Affect: Patient reports their mood is depressed, affect is congruent and constricted. Suicidality/Homicidality: Patient denies having any homicidal ideation intent or plan. Denies any suicidal ideations intent or plan Perceptions: Patient denies any visual hallucinations and denies any auditory hallucinations Though content/process: There is no evidence of any delusional thought content and thought process is linear and goal-directed. Memory and concentration: AOX3, grossly intact for the purposes of this session. Can spell "WORLD" backwards Judgment and insight: poor STRENGTHS/WEAKNESSES: strength is that patient is resilient. Weakness is that patient has poor judgment and is impulsive INTELLECT: average IMPRESSIONS: Major depressive disorder, without psychotic features Nicotine dependence. Homelessness PLAN: -Patient is admitted under voluntary status to [facility]HU for stabilization of psychiatric symptoms and safety. Patient has signed adult voluntary form and medication consent and is placed in patient's chart. -Medications : Will start patient on Cymbalta 30 mg daily for mood/anxiety, trazodone 50 mg daily at bedtime for insomnia. -Ativan and Haldol PRN for agitation/aggression -Patient was informed of the risks, benefits and side effects of the medication and patient verbally consented to taking the medications. Patient signed med consent form and was placed in chart. -Internal Medicine consult to perform medical evaluation and physical. -NRT - nicotine patch -SW on board for discharge planning. Encourage patient to participate in groups to work on coping skills.
[2022-02-15] MEDS: DULoxetine HCL 30 MG CAPSULE.DR PO SCH (13:31)
[2022-02-15] MEDS: traZODone HCL 50 MG TAB PO SCH (20:42)
--- NOTE | 2022-02-15 22:53 | P.MDCNMH ---
History of Present Illness H&P Date: 02/15/22 Chief Complaint: suicidal ideation Patient is a 56-year-old female with a known history of depression/anxiety, bipolar disorder and history of heroin use and currently everyday smoker was sent from [facility] ER due to suicidal ideation. Patient initially presented to ER with complaints of pain in her upper tooth. ER physician was able to discharge her and the patient threatened to kill herself. Patient is otherwise homeless currently. apparently patient broke her tooth and were removed recently. She is complaining of pain over the gums. Denies any fever or chills. No difficulty swallowing. Denies any chest pain or shortness breath. No nausea vomiting abdominal pain or diarrhea. No headache or dizziness. Denies any neck pain or stiffness. [facility] reviewed. Review of Systems Constitutional: Patient denies any fever or chills . No generalized weakness or weight loss. Abdomen: Patient denied nausea vomiting and diarrhea and abdominal pain. Cardiovascular: Patient denies any chest pain or short of breath no palpitations. Respiratory: patient denied any cough is from production. No shortness of breath. Upper tooth/gum pain. Neurologic: Patient denied any numbness or tingling headache. Musculoskeletal: Patient denies any complaints of joint swelling or deformity. Skin: Negative Psychiatric: Depressive. Endocrine: No heat or cold intolerance. No recent weight gain. Genitourinary: No dysuria or hematuria. All other 14 point ROS negative except the above Past Medical History Past Medical History: No Reported History Additional Past Medical History / Comment(s): DEPRESSION, ANXIETY, BIPOLAR, Heroin use History of Any Multi-Drug Resistant Organisms: MRSA Date of last positivie culture/infection: 12/17/18 MDRO Source:: arm Past Surgical History: No Surgical Hx Reported Past Anesthesia/Blood Transfusion Reactions: No Reported Reaction Past Psychological History: Anxiety, Bipolar, Depression Smoking Status: Current every day smoker Past Alcohol Use History: None Reported Additional Past Alcohol Use History / Comment(s): pt reports that she does not drink Past Drug Use History: Marijuana, Methamphetamine Medications and Allergies Home Medications Medication Instructions Recorded Confirmed Type Chlorhexidine Gluconate [Peridex] 15 ml PO BID #473 ml 02/13/22 Rx Clindamycin HCl 300 mg PO Q6HR #40 cap 02/13/22 Rx Ibuprofen [Motrin Ib] 800 mg PO Q4H PRN 02/13/22 02/13/22 History Allergies Allergy/AdvReac Type Severity Reaction Status Date / Time Butler And Derivatives AdvReac Unknown Verified 02/13/22 10:49 zolpidem tartrate AdvReac Hallucinati Verified 02/13/22 10:49 [From Ambien] ons Physical Exam Vitals: Vital Signs Temp Pulse Resp BP 02/14/22 22:09 97.4 F L 87 18 144/64 Intake and Output 02/14/22 02/15/22 02/15/22 22:59 06:59 14:59 Other: Weight 72.7 kg PHYSICAL EXAMINATION: Patient is lying in the bed comfortably, no acute distress, awake alert and oriented.. HEENT: Normocephalic. Neck is supple. Pupils reactive. Nostrils clear. Oral cavity is moist. Neck reveals no JVD, carotid bruits, or thyromegaly. CHEST EXAMINATION: Trachea is central. Symmetrical expansion. Lung rizo clear to auscultation and percussion. CARDIAC: Normal S1, S2 with no gallops. No murmurs ABDOMEN: Soft. Bowel sounds normal. No organomegaly. No abdominal bruits. Extremities: reveal no edema. No clubbing or cyanosis Neurologically awake, alert, oriented x3 with well-coordinated movements. No focal deficits noted Skin: No rash or skin lesions. Psychiatric: Coperative. Nonsuicidal Musculoskeletal: No joint swelling or deformity. Normal range of motion. Cranial Nerve Examination - Cranial Nerves Cranial Nerve I- Olfactory: Intact Cranial Nerve II- Optic: Intact Cranial Nerve III- Oculomotor: Intact Cranial Nerve IV- Trochlear: Intact Cranial Nerve V- Trigeminal: Intact Cranial Nerve - Abducens: Intact Cranial Nerve VII- Facial: Intact Cranial Nerve VIII- Auditory: Intact Cranial Nerve IX- Glossopharyngeal: Intact Cranial Nerve X- Vagus: Intact Cranial Nerve XI- Accessory: Intact Cranial Nerve XII- Hypoglossal: Intact Assessment and Plan Assessment: Major depressive disorder and suicidal ideation Anxiety/depression and bipolar disorder History of heroin and methamphetamine use. Currently everyday smoker DVT prophylaxis with early ambulation Plan: Patient will be continued on current psychiatric management and plan. Haldol as needed for psychosis/agitation. Continued on pain management and follow-up closely. Further recommendations based on the clinical course. Smoking cessation has been counseled extensively. Thank you for your consult.
[2022-02-16] MEDS: DULoxetine HCL 30 MG CAPSULE.DR PO SCH (08:17)
[2022-02-16] MEDS: LORazepam 1 MG TAB PO PRN ×2 (08:18→16:26)
--- NOTE | 2022-02-16 12:06 | P.PN ---
Progress Note - Text Progress Note Date: 02/16/22 Interval History: Patient was seen laying in her bed this morning and was directable agreeable to speak to database report writer however did not want to leave her room. She claims that she is doing a bit better however states that "it's too early to tell" with regard to the medication. She is claiming that her depression and anxiety (improving. She continues to be fairly concrete. She states that she had a fair sleep last night, continues to have poor appetite. She does appear to be more future oriented and states that she received a number from psychiatric social worker supervisor to call a [facility] and that she would want to go there upon discharge. At this time patient denies any suicidal or homical ideations, intent or plan. Patient denies any auditory, visual hallucinations and denies any paranoia or delusions. Patient denies any side effects from the medications and has been compliant with meds. Mental Status Exam: General Appearance: Patient appears to be improving appearance, stated age is alert, directable, and attempts to cooperate. Patient appears to have improving hygiene and grooming. Behavior: Patient is seated without any agitated behavior. Irritable, improving Speech: Patient's speech is fluent and nonpressured. [place] Mood/Affect: Patient reports their mood is a bit better, affect is congruent and constricted. Suicidality/Homicidality: Patient denies having any homicidal ideation intent or plan. Denies any suicidal ideations intent or plan Perceptions: Patient denies any visual hallucinations and denies any auditory hallucinations Though content/process: There is no evidence of any delusional thought content and thought process is linear and goal-directed. Memory and concentration: AOX3, grossly intact for the purposes of this session Judgment and insight: Improving mildly IMPRESSIONS: Major depressive disorder, without psychotic features Nicotine dependence. Homelessness Plan: -Patient continues to meet criteria for inpatient psychiatric admission for symptom stabilization and safety. Patient has signed [adult voluntary form and] [medication consent] and was placed in patient's chart. -Medications: increase Cymbalta 60 mg daily for mood/anxiety, trazodone 50 mg daily at night for insomnia. -When necessary Ativan and Haldol for agitation/aggression. -NRT - [nicotine patch] -SW on board for discharge planning. Encouraged the patient to participate in milieu. likely discharge tomorrow to [facility].
[2022-02-16] MEDS: traZODone HCL 50 MG TAB PO SCH (21:15)
[2022-02-17] MEDS: LORazepam 1 MG TAB PO PRN (08:18)
[2022-02-17] MEDS: DULoxetine HCL 30 MG CAPSULE.DR PO SCH (08:18)
[2022-02-17 08:19] VITALS: BP 129/62; PULSE 89
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
== END 2022-02-17 12:09 | disposition home or self-care (01) | DRG 885 ==
LOC: 3MHU 21:16
PROVIDERS: ADMIT Psychiatry & Neurology Psychiatry; ATTEND Psychiatry & Neurology Psychiatry
DX: F33.9 Major depressive disorder, recurrent, unspecified (principal); R45.851 Suicidal ideations; F17.210 Nicotine dependence, cigarettes, uncomplicated; F41.9 Anxiety disorder, unspecified; G47.00 Insomnia, unspecified; Z59.00 Homelessness unspecified; Z79.899 Other long term (current) drug therapy